=== PATIENT | male | born 1955 | race Caucasian/White ===

== ENCOUNTER 2018-05-03 20:06 | Emergency (ER) | payer OTHER ==
[~2018-05-03] VITALS: Ht 162.6 cm; Wt 101.2 kg
[2018-05-03 20:14] VITALS: Ht 162.6 cm; Wt 101.2 kg
[2018-05-03 21:08] LABS: BASOPHIL % 0.7 % (0-2); PLATELET COUNT 271 x10^3mcL (130-400)
[2018-05-03 21:13] LABS: CALCIUM 8.3 mg/dL (8.5-10.1); CHLORIDE SERUM 105 mmol/L (98-107); CREATININE SERUM 1.1 mg/dL (0.7-1.3); GFR1 > 60 mL/min; GLUCOSE SERUM 131 mg/dL (74-106); SODIUM SERUM 141 mmol/L (136-145)
[2018-05-03 21:18] LABS: ALBUMIN 3.4 g/dL (3.4-5.0); ALKALINE PHOSPHATASE 69 U/L (46-116); ALT/SGPT 36 U/L (16-63); AST/SGOT 33 U/L (15-37); BILIRUBIN TOTAL 0.61 mg/dL (0.20-1.00); TOTAL PROTEIN, SERUM 8.1 g/dL (6.4-8.2)
[2018-05-03 23:07] VITALS: BP 127/83
== END 2018-05-03 23:07 | disposition home or self-care (01) ==
LOC: ED 20:06
PROVIDERS: Emergency Medicine
DX: J06.9 Acute upper respiratory infection, unspecified (principal)
CPT/HCPCS: 83880; 85378; 87804; J0696; J1885; J2270; Q0092

== ENCOUNTER 2019-05-07 05:01 | Emergency (ER) | payer OTHER ==
[~2019-05-07] VITALS: Ht 162.6 cm; Wt 101.2 kg
[2019-05-07 05:04] VITALS: Ht 162.6 cm; Wt 101.2 kg
[2019-05-07 06:47] VITALS: BP 171/99
== END 2019-05-07 06:48 | disposition home or self-care (01) ==
LOC: ED 05:01
DX: M54.5 Low back pain (principal); E78.00 Pure hypercholesterolemia, unspecified
CPT/HCPCS: J1885